=== PATIENT | female | born 1960 | race Caucasian/White ===

== ENCOUNTER 2019-01-26 08:47 | Day surgery (SDC) | payer BC ==
[~2019-01-26] VITALS: Ht 160 cm; Wt 75.4 kg
[~2019-01-26 08:47] MED LIST: ALEN70 PO; CALC1.25T; Fosamax70 MG; Hair, Skin & N1 EACH
== END 2019-01-26 11:13 | disposition home or self-care (01) ==
LOC: ORSCSDS 08:47
PROVIDERS: Internal Medicine Gastroenterology
PROC: 0DJD8ZZ Inspection of Lower Intestinal Tract, Via Natural or Artificial Opening Endoscopic (ICD-10-PCS; principal; 2019-01-26 10:15)
DX: Z12.11 Encounter for screening for malignant neoplasm of colon (principal); Z86.010 Personal history of colon polyps; K57.30 Diverticulosis of large intestine without perforation or abscess without bleeding; K64.8 Other hemorrhoids; D64.9 Anemia, unspecified; Z79.899 Other long term (current) drug therapy
CPT/HCPCS: J2704; J7120

== ENCOUNTER → 2020-12-03 | Outpatient (CLI) | payer BC | LOC: LAB SHORT 12:29 → LAB 12:29 | DX: D48.5 Neoplasm of uncertain behavior of skin (principal); D22.22 Melanocytic nevi of left ear and external auricular canal | CPT/HCPCS: 88305 ==